=== PATIENT | male | born 1980 | race Caucasian/White ===

== ENCOUNTER 2016-11-04 05:23 | Emergency (ER) | payer BC ==
[2016-11-04] MEDS ORDERED: SODIUM CHLORIDE 1,000 ML IV STA (05:46)
[2016-11-04 05:49] VITALS: BMI 25.0
[2016-11-04 06:00] LABS: BASOPHIL 0.6 % (0-2.0); EOSINOPHIL 1.9 % (0-4.5); MCH 27.4 pg (25.7-33.7); MCHC 31.8 g/dl (32.0-35.9); MEAN CELL VOLUME 86.3 fl (80-96); MEAN PLT VOLUME 9.7 fl (7.5-11.1); NEUTROPHILS 59.8 % (42.8-82.8); PLATELET COUNT 198 K/MM3 (134-434); RDW 13.9 % (11.9-15.9); WHITE BLOOD COUNT 11.6 K/mm3 (4.0-10.0)
[2016-11-04 06:11] LABS: INR 0.81 (0.82-1.09); PROTHROMBIN TIME (PATIENT) 8.9 SEC (9.98-11.88)
[2016-11-04 06:13] LABS: ACTIVATED PTT 29.1 SECONDS (26.9-34.4)
[2016-11-04 06:22] LABS: ALBUMIN 3.8 g/dl (3.4-5.0); ALK PHOS 113 U/L (45-117); ANION GAP 16 (8-16); BILIRUBIN,TOTAL 0.3 mg/dL (0.2-1.0); CALCIUM 8.8 mg/dL (8.5-10.1); CO2 21 mmol/L (21-32); CREATININE 0.7 mg/dL (0.7-1.3); GLUCOSE,RANDOM 116 mg/dL (74-106); SGOT/AST 20 U/L (15-37); SGPT/ALT 29 U/L (12-78)
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
[2016-11-04] MEDS ORDERED: traMADol HCL 50 MG TABLET PO ONE (07:53)
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
[2016-11-04] MEDS ORDERED: traMADol HCL 50 MG TABLET ONE (07:58)
[2016-11-04] MEDS ORDERED: IBUPROFEN 400 MG TABLET (FP) PO ONE ×2 (10:17→10:24)
[2016-11-04 10:29] VITALS: BP 113/75; PULSE 94; TEMP 98.4
--- NOTE | 2016-11-04 13:25 | EKG ---
Test Reason : Blood Pressure : / mmHG Vent. Rate : 085 BPM Atrial Rate : 085 BPM P-R Int : 144 ms QRS Dur : 090 ms QT Int : 368 ms P-R-T Axes : 051 004 063 degrees QTc Int : 437 ms NORMAL SINUS RHYTHM WITH SINUS ARRHYTHMIA NORMAL ECG NO PREVIOUS ECGS AVAILABLE Confirmed by DIANDRA ANTUNEZ, ELLIE ([id number]) on 11/04/2016 1:25:41 PM Referred By: Confirmed By:ELLIE JIM MD
== END 2016-11-04 10:28 | disposition home or self-care (01) ==
LOC: JER 05:23
PROC: 3E0337Z Introduction of Electrolytic and Water Balance Substance into Peripheral Vein, Percutaneous Approach (ICD-10-PCS; principal; 2016-11-04)
PROC: 0HQ0XZZ Repair Scalp Skin, External Approach (ICD-10-PCS; 2016-11-04)
DX: S06.899A Other specified intracranial injury with loss of consciousness of unspecified duration, initial encounter (principal); S02.2XXA Fracture of nasal bones, initial encounter for closed fracture; S01.01XA Laceration without foreign body of scalp, initial encounter; S00.03XA Contusion of scalp, initial encounter; Y04.2XXA Assault by strike against or bumped into by another person, initial encounter; Y93.89 Activity, other specified; Y92.414 Local residential or business street as the place of occurrence of the external cause; Y99.8 Other external cause status; Y07.9 Unspecified perpetrator of maltreatment and neglect
CPT/HCPCS: 36415; 70450-TC; 71260-TC; 72125-TC; 74177-TC; 80053; 80307; 85025; 85610; 85730; 86850; 86900; 86901; 93005; 93010; 99285-25